=== PATIENT | female | born 1960 | race Caucasian/White ===

== ENCOUNTER 2018-04-22 14:58 | Inpatient (IN) | payer MEDICAID ==
[2018-04-22] VITALS (8 sets, daily range): BP systolic 110–122; BP diastolic 72–80
[~2018-04-22] VITALS: Ht 152.4 cm; Wt 74.8 kg
[~2018-04-22 14:58] MED LIST: HYDR-309 PO; IBUP-2071 PO
[2018-04-22] MEDS ORDERED: PETROLATUM,WHITE 71 GM JELLY TP PRN (15:15)
[2018-04-22] MEDS ORDERED: MAG HYDROX/AL HYDROX/SIMETH ES 30 ML SUSPENSION UDCUP PO PRN (15:15)
[2018-04-22] MEDS ORDERED: ALBUTEROL SULFATE HFA 90 MCG/PUFF 8 GM INHALER IH PRN (15:15)
[2018-04-22] MEDS ORDERED: MAGNESIUM HYDROXIDE SUSPENSION 30 ML UDCUP PO PRN (15:15)
[2018-04-22] MEDS ORDERED: CloNIDine HCL 0.1 MG TABLET PO PRN (15:15)
[2018-04-22] MEDS ORDERED: ACETAMINOPHEN 325 MG TABLET PO PRN (15:15)
[2018-04-22] MEDS ORDERED: ZOLPIDEM TARTRATE 10 MG TABLET PO PRN (15:15)
[2018-04-22] MEDS ORDERED: ONDANSETRON HCL 4 MG TABLET PO PRN (15:15)
[2018-04-22] MEDS ORDERED: LOPERAMIDE HCL 2 MG CAPSULE PO PRN (15:15)
[2018-04-22] MEDS ORDERED: DOCUSATE SODIUM 100 MG CAPSULE PO PRN (15:15)
[2018-04-22] MEDS: HALOPERIDOL 5 MG TABLET PO PRN ×2 (17:05→21:11)
[2018-04-22] MEDS: LORazepam 2 MG TABLET PO PRN ×2 (17:05→21:11)
[2018-04-22] MEDS: IBUPROFEN 400 MG TABLET PO PRN (17:42)
[2018-04-23 08:43] VITALS: BP 108/69
[2018-04-23] MEDS: LORazepam 2 MG TABLET PO PRN (08:58)
[2018-04-23] MEDS ORDERED: NICOTINE 14 MG/24 HOUR PATCH TD SCH (09:00)
[2018-04-23] MEDS ORDERED: ESCITALOPRAM OXALATE 10 MG TABLET PO SCH (09:00)
[2018-04-23] MEDS: HALOPERIDOL 5 MG TABLET PO PRN (09:43)
[2018-04-23] MEDS: IBUPROFEN 400 MG TABLET PO PRN (09:44)
[2018-04-23] MEDS ORDERED: ESCI10TA54 PO (12:06)
[2018-04-23] MEDS ORDERED: ESCI10TA PO (12:19)
== END 2018-04-23 16:25 | disposition home or self-care (01) | DRG 751 ==
LOC: B3A 15:06
DX: F33.2 Major depressive disorder, recurrent severe without psychotic features (principal); R56.9 Unspecified convulsions; R45.851 Suicidal ideations; B19.10 Unspecified viral hepatitis B without hepatic coma; F15.10 Other stimulant abuse, uncomplicated; F10.20 Alcohol dependence, uncomplicated; F12.10 Cannabis abuse, uncomplicated; J44.9 Chronic obstructive pulmonary disease, unspecified; K21.9 Gastro-esophageal reflux disease without esophagitis; M19.90 Unspecified osteoarthritis, unspecified site; B18.2 Chronic viral hepatitis C; R00.0 Tachycardia, unspecified; Z79.899 Other long term (current) drug therapy; Z71.41 Alcohol abuse counseling and surveillance of alcoholic; Z71.51 Drug abuse counseling and surveillance of drug abuser
CPT/HCPCS: 87081

== ENCOUNTER 2018-05-06 01:40 | Emergency (ER) | payer MEDICAID, OTHER ==
[~2018-05-06] VITALS: Ht 152.4 cm; Wt 72.7 kg
[~2018-05-06 01:40] MED LIST changes: +ESCI10TA PO; +ESCI10TA54 PO; -HYDR-309 PO; -IBUP-2071 PO
[2018-05-06 02:30] LABS: ANION GAP 17 mmol/L (8-16); CALCIUM, TOTAL 10.3 mg/dL (8.8-10.5); CARBON DIOXIDE 19 mmol/L (22-29); CHLORIDE 99 mmol/L (98-107); CREATININE 0.58 mg/dL (0.60-1.30); GLOMERULAR FILTR. RATE CALC > 60 mL/min (>60); GLUCOSE,RANDOM 110 mg/dL (70-110); POTASSIUM 3.1 mmol/L (3.5-5.1); SODIUM SERUM 135 mmol/L (136-145); UREA NITROGEN, BLOOD 18 mg/dL (7-18)
[2018-05-06 02:36] LABS: ALANINE AMINOTRANSFERASE 28 U/L (12-78); ALBUMIN 3.2 g/dL (3.4-5.0); ALKALINE PHOSPHATASE 161 U/L (46-116); ASPARTATE AMINOTRANSFERASE 17 U/L (15-37); BILIRUBIN,TOTAL 0.3 mg/dL (0.1-1.0); TOTAL PROTEIN, SERUM 7.9 g/dL (6.4-8.2)
[2018-05-06 02:41] LABS: BASOPHILS % (AUTO) 0.8 % (0.0-2.0); EOSINOPHILS % (AUTO) 1.1 % (1.0-6.0); HEMATOCRIT 39.6 % (36-46); HEMOGLOBIN 13.8 g/dL (12.0-16.0); LYMPHOCYTES # (AUTO) 2.5 K/uL (1.0-4.8); LYMPHOCYTES % (AUTO) 18.5 % (22.0-44.0); MEAN CORPUSCULAR HGB CONC 34.8 G/dL (31.0-37.0); MEAN CORPUSCULAR VOLUME 95 fL (80-100); NEUTROPHILS # (AUTO) 9.9 K/uL (1.8-7.7); NEUTROPHILS % (AUTO) 72.6 % (40.0-70.0); PLATELET COUNT (AUTO) 338 K/uL (150-450); RED BLOOD CELL COUNT(AUTO) 4.18 MIL/uL (4.00-5.20); RED CELL DISTRIBUTION WIDTH 13.4 % (11.5-14.5)
[2018-05-06] MEDS ORDERED: LORazepam 2 MG/ML VIAL IM ONE (03:45)
[2018-05-06] MEDS ORDERED: HALOPERIDOL LACTATE 5 MG/ML VIAL IM ONE (03:45)
[2018-05-06] MEDS ORDERED: POTASSIUM CHLORIDE 10% 40 MEQ/30 ML LIQUID UDCUP PO ONE (05:00)
[2018-05-06] MEDS ORDERED: ASPIRIN 325 MG TABLET PO ONE (05:00)
[2018-05-06] MEDS: SODIUM CHLORIDE 0.9% 2,000 ML IV ONE ×2 (08:20→09:22)
[2018-05-06 10:34] VITALS: BP 102/67
== END 2018-05-06 10:36 | disposition home or self-care (01) ==
LOC: EMS 01:40
DX: R07.89 Other chest pain (principal); F10.239 Alcohol dependence with withdrawal, unspecified; E87.6 Hypokalemia; F15.10 Other stimulant abuse, uncomplicated; L55.9 Sunburn, unspecified; M19.90 Unspecified osteoarthritis, unspecified site; F12.90 Cannabis use, unspecified, uncomplicated; F19.90 Other psychoactive substance use, unspecified, uncomplicated; F15.90 Other stimulant use, unspecified, uncomplicated; F17.210 Nicotine dependence, cigarettes, uncomplicated; F41.9 Anxiety disorder, unspecified; F31.9 Bipolar disorder, unspecified; J44.9 Chronic obstructive pulmonary disease, unspecified; Z59.0 Homelessness; Y90.0 Blood alcohol level of less than 20 mg/100 ml
CPT/HCPCS: 36415; 71045; 80053; 83880; 84484; 85025; 93005; 96372; 99285; 99406; G0480; J1630; J2060; J7030